=== PATIENT | female | born 1990 | race Caucasian/White ===

== ENCOUNTER 2021-01-30 02:50 | Inpatient (IN) ==
[2021-01-30] MEDS ORDERED: RINGER'S SOLUTION,LACTATED 1,000 ML IV ONE (03:37)
[2021-01-30] MEDS ORDERED: BUTORPHANOL TARTRATE 2 MG/ML VIAL IV PRN ×2 (03:37)
[2021-01-30] MEDS ORDERED: OXYTOCIN/0.9 % SODIUM CHLORIDE 30 UNITS/500 ML BAG IV ONE ×2 (03:37→12:38)
[2021-01-30] MEDS ORDERED: ONDANSETRON 4 MG TAB.RAPDIS PO PRN (03:37)
[2021-01-30] MEDS ORDERED: LIDOCAINE HCL 50 ML VIAL PERI PRN (03:37)
[2021-01-30] MEDS ORDERED: RINGER'S SOLUTION,LACTATED 1,000 ML IV PRN (03:37)
[2021-01-30] MEDS ORDERED: VANCOMYCIN HCL 2 GM in DEXTROSE 5 % IN WATER 500 ML IV SCH ×2 (03:45)
[2021-01-30] MEDS ORDERED: BUPIVACAINE HCL/0.9 % NACL/PF 250 ML EP PRN (03:50)
[2021-01-30] MEDS ORDERED: ONDANSETRON HCL/PF 2 MG/ML VIAL IV PRN (03:50)
[2021-01-30] MEDS ORDERED: NALOXONE HCL 1 MG/1 ML SYRG IV PRN (03:50)
[2021-01-30] MEDS ORDERED: BUPIVACAINE HCL/PF 30 ML VIAL EP SCH (04:00)
[2021-01-30 04:01] LABS: Hematocrit 28.9 % (37.0-47.0); Hemoglobin 8.9 gm/dL (12.5-16.0); Mean Corpuscular Hemoglobin 21.2 pg (27-31); Mean Corpuscular Hgb Conc 30.8 g/dl (32-36); Mean Platelet Volume 10.8 fl (8-12.5); Platelet Count 194 K/mm3 (150-450); Red Blood Count 4.19 M/mm3 (4.2-5.4); Red Cell Distribution Width 15.3 % (11.5-14.0); White Blood Count 15.7 K/mm3 (4.0-10.5)
[2021-01-30 04:03] LABS: Total Cells Counted 100
--- NOTE | 2021-01-30 04:12 | ANES ---
Anesthesia Pre Procedure Eval HOME MEDICATIONS Famotidine [Pepcid AC] 20 mg PO DAILY 01/30/21 [Last Taken Unknown] Loratadine/Pseudoephedrine [Claritin-D 12 Hour Tablet] DAILY PRN 01/30/21 [Last Taken Unknown] Allergies/Adverse Reactions: Allergies Allergy/AdvReac Type Severity Reaction Status Date / Time Penicillins Allergy Verified 01/30/21 04:05 - Planned Procedure Planned Procedure: Labor Epidural Medication List Reviewed:: Yes Allergies Verified: Yes - Anesthesia Assessment and Plan ASA Class: PS, II Anesthesia Type Plan: Epidural
[2021-01-30 04:18] LABS: Albumin * 2.7 gm/dl (3.4-5.0); Anion Gap 14.5 mmol/L (6.8-13.8); BUN/Creatinine Ratio 21.9 (9.0-21.6); Bilirubin, Total 0.3 mg/dL (0.0-1.1); Ca. Corrected For Albumin 9.3 mg/dL (8.4-10.2); Calcium * 8.6 mg/dL (7.9-10.9); Carbon Dioxide 22.3 mmol/L (24-32.6); Potassium 3.8 mmol/L (3.4-4.6); Total Protein 6.8 gm/dL (6.2-8.2)
[2021-01-30 04:39] LABS: Lymphocyte 15 % (20-51); Monocyte 9 % (0-9); Neutrophil 76 % (42-75); Neutrophil # 11.9 K/mm3 (1.3-6.0)
[2021-01-30 04:42] LABS: Anisocytosis 1+; Hypochromia 1+; Microcytosis 2+; Ovalocytes Trace; Polychromasia 1+
[2021-01-30 04:43] LABS: Giant Platelets Trace; Platelet Estimate Normal (NORMAL)
--- NOTE | 2021-01-30 04:48 | ANES ---
Anesthesia Procedure Note Procedure Note: ANESTHESIA PROCEDURE NOTE Date of Procedure: 01/30/2021. Time of procedure: 0430. Performed by: Osmel Velazquez CRNA Director Of [employer]: None. Preprocedure diagnosis: Active labor. Post procedure diagnosis: Same. Procedure: Insertion of labor epidural. Indications: The patient is a 30-year-old female in active labor requesting labor epidural for pain management. Findings: See below. Details of the procedure: The patient was placed in a sitting position. DuraPrep as well as Betadine swabs X3 was applied to the patient's back. Patient was then draped in a sterile fashion. Lidocaine 1% was infiltrated to the skin and subcutaneous tissues at the level of the L3-4 interspace. The epidural space was identified using a 18-gauge Tuohy needle with elwa-[id number] technique. Epidural catheter was inserted to a depth of 11 centimeters at skin. Negative test dose was elicited using 3 mL of 1.5% preservative-free lidocaine plus epinephrine 1 200,000. The epidural catheter was then taped and secured in place. A loading dose of 8 mL of 0.25% preservative-free bupivacaine was administered to the epidural catheter after negative aspiration for blood and CSF. EBL: Minimal. Fluids: N/A. Specimen: N/A. Post procedure condition: The patient tolerated the procedure well. No complications were noted. Thank you for this consultation. Osmel Velazquez CRNA
--- NOTE | 2021-01-30 04:48 | ANES ---
Post Anesthesia Assessment - Vital Signs Airway Patency: Normal - Mental Status Level Of Consciousness: Awake - N/V Assessment Nausea/Vomiting Presence: None Dehydration:: No
[2021-01-30 05:21] LABS: Random Urine Total Protein 52.1 mg/dL (0-12)
[2021-01-30] MEDS ORDERED: DEXTROSE 5%-LACTATED RINGERS 1,000 ML IV PRN (06:41)
[2021-01-30 06:50] LABS: Cocaine Ur Negative (NEGATIVE); Urine Barbiturate Negative (NEGATIVE); Urine Benzodiazepines Negative (NEGATIVE); Urine Opiates Negative (NEGATIVE); Urine PCP Negative (NEGATIVE); Urine THC Negative (NEGATIVE)
[2021-01-30 06:51] LABS: Urine Appearance Clear (CLEAR); Urine Bacteria None Seen; Urine Bilirubin Negative (NEGATIVE); Urine Blood 5 /ul (NEGATIVE); Urine Color Dark Yellow; Urine Ketone Negative (NEGATIVE); Urine Nitrite Negative (NEGATIVE); Urine Protein 15 mg/dL (NEGATIVE); Urine RBC 0-5 /hpf (0-5); Urine Urobilinogen Normal (NORMAL)
--- NOTE | 2021-01-30 11:55 | HP ---
Chief Complaint - Chief Complaint Date of Service: 01/30/21 Time of Service: 11:46 Chief Complaint: Labor, no care History of Present Illness: 30 year old at 37w 3d by LMP (May 13, 2020). She has not had any care. She has not had any ultrasounds. She reported rupture of membranes and regular ctx. She also reports vaginal bleeding. Fetus is active. Medical History (Last Reviewed 01/30/21 @ 11:49 by Shayla Ann MD) E coli infection (Acute) in kidney at age 7 hemorrhage (Acute) prior Pre-eclampsia (Acute) prior 4 of 5 pregnancies Asthma (Acute) as child Depression (Acute) Anxiety (Acute) Gestational hypertension Surgical History: Surgical History (Last Reviewed 01/30/21 @ 11:49 by Shayla Ann MD) No pertinent past surgical history Family History: Family History (Last Updated 01/30/21 @ 11:50 by Shayla Ann MD) Other No pertinent family history Social History: (Last Reviewed 01/30/21 @ 11:49 by Shayla Ann MD) Social History: adopted: No Marital status: Single household members: significant other number of children: 5 current occupational status: unemployed Tobacco: Smoking Status: Current every day smoker tobacco type: cigarettes Smoking cigarettes per day: 7 Alcohol: alcohol intake: never Substance Use: substance use type: does not use Review Of Systems (GEN) - Review of Systems Generalized/Overall Review: Present: No Symptoms Reported EENTM: Present: No Symptoms Reported Respiratory: Present: No Symptoms Reported Cardiac: Present: No Symptoms Reported Genitourinary: Present: Other - ctx, vb, lof Misc: All systems neg except as marked Allergies/Adverse Reactions: Allergies Allergy/AdvReac Type Severity Reaction Status Date / Time Penicillins Allergy Verified 01/30/21 04:05 Home Medications: HOME MEDICATIONS Famotidine [Pepcid AC] 20 mg PO DAILY 01/30/21 [Last Taken Unknown] Loratadine/Pseudoephedrine [Claritin-D 12 Hour Tablet] DAILY PRN 01/30/21 [Last Taken Unknown] Exam - Exam Vital Signs: Vital Signs - Last Taken Temp 36.3 C 01/30/21 03:45 Pulse 101 H 01/30/21 03:45 Resp 18 01/30/21 03:45 BP 142/86 H 01/30/21 03:45 Pulse Ox 98 01/30/21 03:45 Constitutional: Present: Alert, Oriented x3, Cooperative, No distress ENT Exam: Present: hearing grossly normal Eye Exam: bilateral eye: normal inspection Neck: Present: supple, normal inspection Respiratory: Present: lungs clear, normal breath sounds Cardiovascular/Chest: Present: regular rate, rhythm Abdomen: Present: Normal bowel sounds, soft, nontender /Rectal: Present: Other - /- Extremity: Present: non-tender, no calf tenderness Skin Exam: Present: normal color, warm/dry, no cyanosis Neurologic: Present: alert, normal mood/affect, oriented x 3 Appearance: Present: appropriate appearance, appropriate insight, neat, no memory impairment Eye contact: Present: cooperative, good eye contact, normal speech Thoughts: Present: normal thought pattern Diagnostic Studies: Abnormal Lab Results 01/30/21 01/30/21 01/30/21 Range/Units 03:45 03:45 03:50 WBC (4.0-10.5) K/mm3 RBC (4.2-5.4) M/mm3 Hgb (12.5-16.0) gm/dL Hct (37.0-47.0) % MCV (78-100) fl MCH (27-31) pg MCHC (32-36) g/dl RDW (11.5-14.0) % Neutrophils % (Manual) (42-75) % Lymphocytes % (Manual) (20-51) % Neutrophils # (Manual) (1.3-6.0) K/mm3 Monocytes # (Manual) (0.0-1.0) k/mm3 Carbon Dioxide 22.3 L (24-32.6) mmol/L Anion Gap 14.5 H (6.8-13.8) mmol/L BUN/Creatinine Ratio 21.9 H (9.0-21.6) ALT 12 L (19-67) U/L Alkaline Phosphatase 292 H (50-170) U/L Albumin 2.7 L (3.4-5.0) gm/dl Urine Protein 15 H (NEGATIVE) mg/dL Urine Blood 5 H (NEGATIVE) /ul Ur Leukocyte Esterase 75 H (NEGATIVE) /ul Urine WBC 5-10 H (0-5) /hpf Calcium Oxalate Crystal Moderate - 2+ H (NONE) /hpf U Random Total Protein 52.1 H (0-12) mg/dL U [place] Prot/Creat Ratio 282 H (0-199) mg/gm 01/30/21 Range/Units 03:50 WBC 15.7 H (4.0-10.5) K/mm3 RBC 4.19 L (4.2-5.4) M/mm3 Hgb 8.9 L (12.5-16.0) gm/dL Hct 28.9 L (37.0-47.0) % MCV 69.0 L (78-100) fl MCH 21.2 L (27-31) pg MCHC 30.8 L (32-36) g/dl RDW 15.3 H (11.5-14.0) % Neutrophils % (Manual) 76 H (42-75) % Lymphocytes % (Manual) 15 L (20-51) % Neutrophils # (Manual) 11.9 H (1.3-6.0) K/mm3 Monocytes # (Manual) 1.4 H (0.0-1.0) k/mm3 Carbon Dioxide (24-32.6) mmol/L Anion Gap (6.8-13.8) mmol/L BUN/Creatinine Ratio (9.0-21.6) ALT (19-67) U/L Alkaline Phosphatase (50-170) U/L Albumin (3.4-5.0) gm/dl Urine Protein (NEGATIVE) mg/dL Urine Blood (NEGATIVE) /ul Ur Leukocyte Esterase (NEGATIVE) /ul Urine WBC (0-5) /hpf Calcium Oxalate Crystal (NONE) /hpf U Random Total Protein (0-12) mg/dL U [place] Prot/Creat Ratio (0-199) mg/gm Laboratory Results WBC 15.7 K/mm3 (4.0-10.5) H 01/30/21 03:50 RBC 4.19 M/mm3 (4.2-5.4) L 01/30/21 03:50 Hgb 8.9 gm/dL (12.5-16.0) L 01/30/21 03:50 Hct 28.9 % (37.0-47.0) L 01/30/21 03:50 MCV 69.0 fl (78-100) L 01/30/21 03:50 MCH 21.2 pg (27-31) L 01/30/21 03:50 MCHC 30.8 g/dl (32-36) L 01/30/21 03:50 RDW 15.3 % (11.5-14.0) H 01/30/21 03:50 Plt Count 194 K/mm3 (150-450) 01/30/21 03:50 MPV 10.8 fl (8-12.5) 01/30/21 03:50 Neutrophils % (Manual) 76 % (42-75) H 01/30/21 03:50 Lymphocytes % (Manual) 15 % (20-51) L 01/30/21 03:50 Monocytes % (Manual) 9 % (0-9) 01/30/21 03:50 Neutrophils # (Manual) 11.9 K/mm3 (1.3-6.0) H 01/30/21 03:50 Lymphocytes # (Manual) 2.4 k/mm3 (1.5-3.5) 01/30/21 03:50 Monocytes # (Manual) 1.4 k/mm3 (0.0-1.0) H 01/30/21 03:50 Platelet Estimate Normal (NORMAL) 01/30/21 03:50 Giant Platelets Trace 01/30/21 03:50 Polychromasia 1+ 01/30/21 03:50 Hypochromasia 1+ 01/30/21 03:50 Anisocytosis 1+ 01/30/21 03:50 Microcytosis 2+ 01/30/21 03:50 Ovalocytes Trace 01/30/21 03:50 Sodium 135 mmol/L (132-142) 01/30/21 03:50 Plasma Sodium 135 mmol/L (130-142) 01/30/21 03:50 Potassium 3.8 mmol/L (3.4-4.6) 01/30/21 03:50 Chloride 102 mmol/L (97-106) 01/30/21 03:50 Carbon Dioxide 22.3 mmol/L (24-32.6) L 01/30/21 03:50 Anion Gap 14.5 mmol/L (6.8-13.8) H 01/30/21 03:50 BUN 16 mg/dL (3-23) 01/30/21 03:50 Creatinine 0.73 mg/dL (0.4-1.4) 01/30/21 03:50 Est GFR (Non-Af Amer) 98 mL/min (60-130) 01/30/21 03:50 BUN/Creatinine Ratio 21.9 (9.0-21.6) H 01/30/21 03:50 Random Glucose 77 mg/dL (70-110) 01/30/21 03:50 Calcium 8.6 mg/dL (7.9-10.9) 01/30/21 03:50 Calcium Adj for Albumin 9.3 mg/dL (8.4-10.2) 01/30/21 03:50 Total Bilirubin 0.3 mg/dL (0.0-1.1) 01/30/21 03:50 AST 15 U/L (0-48) 01/30/21 03:50 ALT 12 U/L (19-67) L 01/30/21 03:50 Alkaline Phosphatase 292 U/L (50-170) H 01/30/21 03:50 Total Protein 6.8 gm/dL (6.2-8.2) 01/30/21 03:50 Albumin 2.7 gm/dl (3.4-5.0) L 01/30/21 03:50 Urine Color Dark yellow 01/30/21 03:45 Urine Appearance Clear (CLEAR) 01/30/21 03:45 Urine pH 7.0 pH (5.0-7.0) 01/30/21 03:45 Ur Specific [place] 1.020 SP.GR. (1.005-1.010) 01/30/21 03:45 Urine Protein 15 mg/dL (NEGATIVE) H 01/30/21 03:45 Urine Glucose (UA) Negative mg/dL (NEGATIVE) 01/30/21 03:45 Urine Ketones Negative mg/dL (NEGATIVE) 01/30/21 03:45 Urine Blood 5 /ul (NEGATIVE) H 01/30/21 03:45 Urine Nitrate Negative (NEGATIVE) 01/30/21 03:45 Urine Bilirubin Negative mg/dl (NEGATIVE) 01/30/21 03:45 Urine Urobilinogen Normal EU/dl (NORMAL) 01/30/21 03:45 Ur Leukocyte Esterase 75 /ul (NEGATIVE) H 01/30/21 03:45 Urine RBC 0-5 /hpf (0-5) 01/30/21 03:45 Urine WBC 5-10 /hpf (0-5) H 01/30/21 03:45 Ur Epithelial Cells 0-5 /hpf (0-5) 01/30/21 03:45 Calcium Oxalate Crystal Moderate - 2+ /hpf (NONE) H 01/30/21 03:45 Urine Bacteria None seen (NONE) 01/30/21 03:45 Urine Culture Comments Culture to follow 01/30/21 03:45 Ur Random Creatinine 184.8 mg/dL (60-200) 01/30/21 03:45 U Random Total Protein 52.1 mg/dL (0-12) H 01/30/21 03:45 U [place] Prot/Creat Ratio 282 mg/gm (0-199) H 01/30/21 03:45 Urine Opiates Screen Negative (NEGATIVE) 01/30/21 03:48 Barbiturate Screen Negative (NEGATIVE) 01/30/21 03:48 Ur Phencyclidine Scrn Negative (NEGATIVE) 01/30/21 03:48 Urine Amphetamine Negative (NEGATIVE) 01/30/21 03:48 U Benzodiazepines Scrn Negative (NEGATIVE) 01/30/21 03:48 Urine Cocaine Screen Negative (NEGATIVE) 01/30/21 03:48 Urine Marijuana (THC) Negative (NEGATIVE) 01/30/21 03:48 Blood Type O Positive 01/30/21 03:50 Antibody Screen Negative 01/30/21 03:50 Assessment/Plan - Narrative Narrative: 30 year old at 37 weeks 3 days by LMP Vaginal bleeding suspicious for placental abruption, large clot passed weighing 300 mL prior to delivery Grossly ruptured and 6 cm Admit for labor PNL ordered Vertex presentation confirmed by bedside ultrasound - Assessment/Plan (1) 37 weeks gestation of Problem: Acute (2) No care in current in third trimester Problem: Acute (3) Twin gestation in third trimester Problem: Acute Qualifiers: Multiple gestation type: dichorionic and diamniotic Qualified Code(s): O30.043 - Twin , dichorionic/diamniotic, third trimester
--- NOTE | 2021-01-30 11:58 | OR ---
Operative Report - Dictated Report Narrative: Date of delivery: 01/30/2021 Time of delivery: Baby A 1024 direct OP boy APGARS 9/9 2963 grams Baby B 1055 direct OA girl APGARS 8/9 2899 grams Procedure: Description of the procedure: The patient progressed to complete dilation. A forebag was noted on baby A and this was ruptured easily. Baby A delivered direct OP. Cord clamping was delayed for 60 seconds due to vigorous infant. The cord was cut and clamped. The placenta was delivered by expression and intact. The placenta was not coming easily and thus gentle traction was used. Pitocin was started to aid in delivery of the placenta. I asked the patient to push. The placenta came out intact. Following delivery of the placenta a second amniotic fluid bag and a head was noted. The baby delivered in a direct OA position without difficulty. The second placenta delivered without any difficulty. Cord blood was collected for baby B. There were no lacerations. EBL: 1300 mL Complications: none Specimens: cord blood x2, placenta x2 History for MU Definition: * The number of deliveries resulting in a live the patient experienced prior to current hospitalization * The previous delivery of live twins or any live multiple gestation is conside red one live event. *If primagravida or nulliparous is documented select zero for the number of previous live births. Live Events: 5
[2021-01-30] MEDS ORDERED: MISOPROSTOL 200 MCG TABLET RC ONE (12:11)
[2021-01-30 12:17] LABS: Hematocrit 27.4 % (37.0-47.0); Hemoglobin 8.1 gm/dL (12.5-16.0); Mean Cell Volume 69.7 fl (78-100); Mean Corpuscular Hemoglobin 20.6 pg (27-31); Mean Corpuscular Hgb Conc 29.6 g/dl (32-36); Mean Platelet Volume 11.1 fl (8-12.5); Neutrophil # 16.6 K/mm3 (1.3-6.0); Neutrophil % 84.2 % (42-75.0); Platelet Count 177 K/mm3 (150-450); Red Blood Count 3.93 M/mm3 (4.2-5.4); Red Cell Distribution Width 15.3 % (11.5-14.0); White Blood Count 19.7 K/mm3 (4.0-10.5)
[2021-01-30] MEDS ORDERED: BISACODYL 10 MG SUPP.RECT RC PRN (12:38)
[2021-01-30] MEDS ORDERED: BENZOCAINE/MENTHOL 81 SPRAY CAN TP PRN (12:38)
[2021-01-30] MEDS ORDERED: diphenhydrAMINE HCL 25 MG CAPSULE PO PRN (12:38)
[2021-01-30] MEDS ORDERED: SENNOSIDES 8.6 MG TABLET PO PRN (12:38)
[2021-01-30] MEDS ORDERED: HYDROcodone/ACETAMINOPHEN 1 EACH TABLET PO PRN (12:38)
[2021-01-30] MEDS ORDERED: GLYCERIN/WITCH HAZEL LEAF 40 APPL BOX TP PRN (12:38)
[2021-01-30] MEDS ORDERED: HYDROCORTISONE 30 APPL TUBE TP PRN (12:38)
[2021-01-30] MEDS: IBUPROFEN 800 MG TABLET PO PRN ×2 (12:50→19:47)
[2021-01-30] MEDS: HYDROcodone/ACETAMINOPHEN 1 EACH TABLET PO PRN ×3 (12:50→19:46)
[2021-01-30] MEDS ORDERED: DIPHTH,PERTUSS(ACELL),TET VAC 0.5 ML VIAL IM ONE (13:00)
[2021-01-30] MEDS: DOCUSATE SODIUM 100 MG CAPSULE PO SCH (21:33)
[2021-01-31] MEDS ORDERED: CALCIUM CARBONATE 500 MG TAB.CHEW PO PRN (04:33)
[2021-01-31 06:23] LABS: Mean Cell Volume 69.6 fl (78-100); Mean Corpuscular Hemoglobin 20.6 pg (27-31); Mean Corpuscular Hgb Conc 29.5 g/dl (32-36); Neutrophil # 12.2 K/mm3 (1.3-6.0); Neutrophil % 70.2 % (42-75.0); Platelet Count 175 K/mm3 (150-450); Red Blood Count 3.16 M/mm3 (4.2-5.4); Red Cell Distribution Width 15.3 % (11.5-14.0); White Blood Count 17.3 K/mm3 (4.0-10.5)
[2021-01-31 06:28] LABS: Hemoglobin 6.5 gm/dL (12.5-16.0)
[2021-01-31] MEDS: DOCUSATE SODIUM 100 MG CAPSULE PO SCH ×2 (09:33→20:52)
[2021-01-31] MEDS: IBUPROFEN 800 MG TABLET PO PRN ×2 (09:35→19:56)
--- NOTE | 2021-01-31 11:34 | PN ---
Subjective - Date and Time Seen Date: 01/31/21 Time: 11:31 Subjective Narrative: Patient's fatigue and dizziness are improving with the blood being infused Objective Objective Narrative: See vital signs - Review of Systems Generalized/Overall Review: Reports: No Symptoms Reported Misc: All systems neg except as marked - Vitals Vitals: Last Vital Signs Temp 36.3 C 01/31/21 09:12 Pulse 99 01/31/21 09:12 Resp 18 01/31/21 09:12 BP 128/57 01/31/21 09:12 Pulse Ox 99 01/31/21 09:12 - Abnormal Lab Findings Abnormal Lab Findings: Abnormal Lab Results 01/30/21 01/30/21 01/31/21 Range/Units 03:50 11:51 06:10 WBC 19.7 H D 17.3 H (4.0-10.5) K/mm3 RBC 3.93 L 3.16 L (4.2-5.4) M/mm3 Hgb 8.1 L 6.5 L* (12.5-16.0) gm/dL Hct 27.4 L 22.0 L* (37.0-47.0) % MCV 69.7 L 69.6 L (78-100) fl MCH 20.6 L 20.6 L (27-31) pg MCHC 29.6 L 29.5 L (32-36) g/dl RDW 15.3 H 15.3 H (11.5-14.0) % Immature Gran % (Auto) 0.80 H 1.20 H (0.001-0.429) % Immature Gran # (Auto) 0.16 H 0.20 H (0.000-0.0310) K/mm3 Neutrophils % 84.2 H (42-75.0) % Lymphocytes % 9.4 L (20-51) % Neutrophils # 16.6 H 12.2 H (1.3-6.0) K/mm3 Lymphocytes # 3.63 H (1.5-3.5) k/mm3 Monocytes # 1.1 H (0.0-1.0) k/mm3 Crossmatch See Detail - Exam Constitutional: Present: Alert, Oriented x3, Cooperative, No distress ENT Exam: Present: hearing grossly normal Neck: Present: normal inspection Cardiovascular/Chest: Present: regular rate, rhythm Abdomen: Present: soft, nontender, nondistended - fundus is firm Extremity: Present: non-tender, no calf tenderness Skin Exam: Present: normal color, warm/dry, no cyanosis Neurologic: Present: alert, normal mood/affect, oriented x 3 Appearance: Present: appropriate appearance, appropriate insight, neat, no memory impairment Eye contact: Present: cooperative, good eye contact, normal speech Thoughts: Present: normal thought pattern Cauti Physician Documentation - Urinary Catheter Management Urethral (Louie) Urethral Indwelling: No Date of Insertion: 01/30/21 Time of Insertion: 05:20 Date of Removal: 01/30/21 Time of Removal: 10:20 Assessment/Plan Plan Narrative: PPD 1 s/p of twins Acute blood loss anemia: currently receiving a transfusion of 2 units of PRBCs. Recheck CBC in the morning Discharge tomorrow - Problems/Diagnosis (1) 37 weeks gestation of Problem: Acute (2) No care in current in third trimester Problem: Acute (3) Twin gestation in third trimester Problem: Acute Qualifiers: Multiple gestation type: dichorionic and diamniotic Qualified Code(s): O30.043 - Twin , dichorionic/diamniotic, third trimester (4) Acute blood loss anemia Problem: Acute (5) hemorrhage Problem: Acute Qualifiers: hemorrhage type: third-stage Qualified Code(s): O72.0 - Third- stage hemorrhage
[2021-01-31 12:16] LABS: Hep B Surface Antigen Confirm DNR
[2021-01-31 19:51] LABS: Hepatitis B Surface Antigen NON-REACTIVE (NON-REACTIVE)
[2021-02-01 07:51] VITALS: BP 124/64
[2021-02-01 07:51] LABS: Hematocrit 25.8 % (37.0-47.0); Mean Cell Volume 72.5 fl (78-100); Mean Corpuscular Hemoglobin 21.9 pg (27-31); Mean Corpuscular Hgb Conc 30.2 g/dl (32-36); Platelet Count 225 K/mm3 (150-450); Red Blood Count 3.56 M/mm3 (4.2-5.4); Red Cell Distribution Width 17.2 % (11.5-14.0); White Blood Count 13.2 K/mm3 (4.0-10.5)
[2021-02-01 07:58] LABS: Hemoglobin 7.8 gm/dL (12.5-16.0)
[2021-02-01 07:59] LABS: Total Cells Counted 100
[2021-02-01] MEDS: DOCUSATE SODIUM 100 MG CAPSULE PO SCH (08:30)
[2021-02-01 08:33] LABS: Band 2 % (0-2.0); Eosinophil 2 % (0-3); Lymphocyte 23 % (20-51); Monocyte 6 % (0-9); Neutrophil 67 % (42-75); Neutrophil # 8.8 K/mm3 (1.3-6.0)
[2021-02-01 08:34] LABS: Anisocytosis 1+; Platelet Estimate Normal (NORMAL)
--- NOTE | 2021-02-01 09:44 | PN ---
Subjective - Date and Time Seen Date: 02/01/21 Time: 09:41 Subjective Narrative: Patient's fatigue and dizziness are improving with the blood being infused Objective Objective Narrative: See vital signs - Review of Systems Generalized/Overall Review: Reports: No Symptoms Reported Genitourinary Symptoms: Reports: Other - vaginal bleeding is normal - Vitals Vitals: Last Vital Signs Temp 36.1 C 02/01/21 07:45 Pulse 78 02/01/21 07:45 Resp 16 02/01/21 07:45 BP 124/64 02/01/21 07:45 Pulse Ox 100 02/01/21 07:45 - Abnormal Lab Findings Abnormal Lab Findings: Abnormal Lab Results 01/30/21 02/01/21 Range/Units 03:50 07:46 WBC 13.2 H D (4.0-10.5) K/mm3 RBC 3.56 L (4.2-5.4) M/mm3 Hgb 7.8 L* (12.5-16.0) gm/dL Hct 25.8 L (37.0-47.0) % MCV 72.5 L (78-100) fl MCH 21.9 L (27-31) pg MCHC 30.2 L (32-36) g/dl RDW 17.2 H (11.5-14.0) % Neutrophils # (Manual) 8.8 H (1.3-6.0) K/mm3 Crossmatch See Detail - Exam Constitutional: Present: Alert, Oriented x3, Cooperative, No distress Abdomen: Present: soft, nontender, nondistended Extremity: Present: non-tender, no calf tenderness Skin Exam: Present: normal color, warm/dry, no cyanosis Neurologic: Present: alert, normal mood/affect, oriented x 3 Appearance: Present: appropriate appearance, appropriate insight, neat, no memory impairment Eye contact: Present: cooperative, good eye contact, normal speech Thoughts: Present: normal thought pattern Cauti Physician Documentation - Urinary Catheter Management Urethral (Louie) Urethral Indwelling: No Date of Insertion: 01/30/21 Time of Insertion: 05:20 Date of Removal: 01/30/21 Time of Removal: 10:20 Assessment/Plan Plan Narrative: PPD 2 s/p twins Doing well Acute blood loss anemia: appropriate rise in hemoglobin. Patient asymptomatic. Vital signs normal Discharge today - Problems/Diagnosis (1) 37 weeks gestation of Problem: Acute (2) No care in current in third trimester Problem: Acute (3) Twin gestation in third trimester Problem: Acute Qualifiers: Multiple gestation type: dichorionic and diamniotic Qualified Code(s): O30.043 - Twin , dichorionic/diamniotic, third trimester (4) Acute blood loss anemia Problem: Acute (5) hemorrhage Problem: Acute Qualifiers: hemorrhage type: third-stage Qualified Code(s): O72.0 - Third- stage hemorrhage (6) Gestational hypertension Problem: Acute Qualifiers: Trimester: third trimester Qualified Code(s): O13.3 - Gestational [-induced] hypertension without significant proteinuria, third trimester
--- NOTE | 2021-02-01 09:52 | DS ---
OB Discharge Summary (1) 37 weeks gestation of Status: Acute (2) No care in current in third trimester Status: Acute (3) Twin gestation in third trimester Status: Acute Qualifiers: Multiple gestation type: dichorionic and diamniotic Qualified Code(s): O30.043 - Twin , dichorionic/diamniotic, third trimester (4) Acute blood loss anemia Status: Acute (5) hemorrhage Status: Acute Qualifiers: hemorrhage type: third-stage Qualified Code(s): O72.0 - Third- stage hemorrhage (6) Gestational hypertension Status: Acute Qualifiers: Trimester: third trimester Qualified Code(s): O13.3 - Gestational [-induced] hypertension without significant proteinuria, third trimester Delivery Date: 01/30/21 Delivery Time: 10:55 :: 6 Para:: 7 Gestational weeks:: 37 Gestational days:: 3 Intrapartum Procedures: Spontaneous Vaginal Delivery, Anesthesia - Epidural Procedures: Transfusion /OP Complications: GHTN, Hemorrhage - Other Discharge Diagnosis: Term -Delivered, Gestational Hypertension, Other - twin gestation, no care - Discharge Information Date of Discharge: 02/01/21 Hospital Course: The patient presented to labor and delivery in labor and with no care. After delivery of one baby the placenta took about 30 minutes to deliver. Following delivery of the placenta there was delivery of another baby. The second placenta delivered without difficulty. The patient started with a hemoglobin of 8 and had a blood loss of 1300 mL so she had acute blood loss anemia. She received two units of PRBCs. She is feeling well and is asymptomatic after transfusion. Discharge Location: Home Disposition: Home self-care Condition: Good Activity on Discharge:: Activity as tolerated, Pelvic Rest Discharge Diet: General/regular food Additional Patient Instructions (free text): Robin's follow up appointments are on 02/03/21 at 8:30 AM with . - Plan Discharge to:: Home Comment:: Routine Discharge Instructions Follow up in office in:: Other - 03/12/2021 at 1600 in [place] - Information Weight (Grams): 2,900 Sex: Female Score 1 min: 8 Score 5 min: 9 Infant Complications: None Other Complications: Baby A boy 2967 grams APGARS 9/9
[2021-02-01] MEDS: IBUPROFEN 800 MG TABLET PO PRN (11:06)
== END 2021-02-01 14:30 | disposition home or self-care (01) | DRG 806 ==
LOC: OBCLINIC 02:50 → OB 03:36
PROVIDERS: ADMIT Obstetrics & Gynecology; ATTEND Obstetrics & Gynecology
DX: Z37.2 Twins, both liveborn; O30.043 Twin pregnancy, dichorionic/diamniotic, third trimester; O13.3 Gestational [pregnancy-induced] hypertension without significant proteinuria, third trimester; Z3A.37 37 weeks gestation of pregnancy; D62 Acute posthemorrhagic anemia; Z23 Encounter for immunization; O72.0 Third-stage hemorrhage